=== PATIENT | male | born 1990 | race Native Hawaiian/Other Pacific Islander ===

== ENCOUNTER 2020-02-05 23:21 | Emergency (ER) | payer OTHER ==
[~2020-02-05] VITALS: Ht 180.3 cm; Wt 111.1 kg
[2020-02-06 00:40] VITALS: BP 129/74; TEMP 97.8
== END 2020-02-06 00:41 | disposition home or self-care (01) ==
LOC: ED 23:21
DX: H16.133 Photokeratitis, bilateral (principal); X32.XXXA Exposure to sunlight, initial encounter; Y92.89 Other specified places as the place of occurrence of the external cause
CPT/HCPCS: 99281

== ENCOUNTER 2020-02-09 13:52 | Emergency (ER) | payer OTHER ==
[~2020-02-09] VITALS: Ht 180.3 cm; Wt 104.3 kg
[2020-02-09 15:00] LABS: PLATELET COUNT 222 K/uL (142-355)
[2020-02-09 15:09] LABS: POTASSIUM 3.9 mmol/L (3.6-5.2)
[2020-02-09 16:30] VITALS: BP 123/69; TEMP 98.1
== END 2020-02-09 16:30 | disposition home or self-care (01) ==
LOC: ED 13:52
PROVIDERS: Emergency Medicine Emergency Medical Services
DX: R10.32 Left lower quadrant pain (principal)
CPT/HCPCS: 80053; 81000; 85027; 96360; 96375; 99284; J1885

== ENCOUNTER 2020-04-20 06:02 | Emergency (ER) | payer OTHER ==
[~2020-04-20] VITALS: Ht 182.9 cm; Wt 113.4 kg
[2020-04-20 06:40] VITALS: BP 135/80; TEMP 97.8
== END 2020-04-20 06:40 | disposition home or self-care (01) ==
LOC: ED 06:02
DX: H10.89 Other conjunctivitis (principal); W89.8XXA Exposure to other man-made visible and ultraviolet light, initial encounter; Y92.89 Other specified places as the place of occurrence of the external cause
CPT/HCPCS: 99283

== ENCOUNTER 2020-05-05 02:41 | Emergency (ER) | payer OTHER ==
[~2020-05-05] VITALS: Ht 182.9 cm; Wt 102.1 kg
[2020-05-05 04:11] VITALS: BP 124/79; TEMP 98
== END 2020-05-05 04:11 | disposition home or self-care (01) ==
LOC: ED 02:41
PROC: 3E1CX8Z Irrigation of Eye using Irrigating Substance (ICD-10-PCS; principal; 2020-05-05)
DX: H16.131 Photokeratitis, right eye (principal); S05.01XA Injury of conjunctiva and corneal abrasion without foreign body, right eye, initial encounter; W89.8XXA Exposure to other man-made visible and ultraviolet light, initial encounter; Y92.89 Other specified places as the place of occurrence of the external cause
CPT/HCPCS: 99283

== ENCOUNTER 2021-08-11 15:54 | Emergency (ER) | payer OTHER ==
[~2021-08-11] VITALS: Ht 182.9 cm; Wt 124.7 kg
[2021-08-11 16:20] VITALS: BP 136/65; TEMP 97.6
[2021-08-11 17:36] LABS: PLATELET COUNT 240 K/uL (142-355)
[2021-08-11 17:47] LABS: POTASSIUM 3.7 mmol/L (3.6-5.2)
== END 2021-08-11 18:15 | disposition home or self-care (01) ==
LOC: ED 15:54
PROVIDERS: Emergency Medicine
DX: K52.89 Other specified noninfective gastroenteritis and colitis (principal); R19.7 Diarrhea, unspecified
CPT/HCPCS: 80048; 85027; 99283